=== PATIENT | female | born 1985 | race Caucasian/White ===

== ENCOUNTER 2016-03-25 23:55 | Emergency (ER) | payer OTHER ==
[~2016-03-25] VITALS: Ht 162.6 cm; Wt 77.5 kg
[~2016-03-25 23:55] MED LIST: BUPR75TA3 PO; BUTA1CAP PO
[2016-03-26] VITALS: TEMP 36.8; Ht 162.6 cm; Wt 77.5 kg
[2016-03-26] MEDS ORDERED: LIDOCAINE HCL 2% VISC SOLN 20 ML UDC ONE (00:05)
--- NOTE | 2016-03-26 00:11 | EMERGENCY ROOM VISIT NOTE ---
History Report prepared by Larry: Hardik Marie Under the Supervision of: Dr. Colton Cormier M.D. 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 The patient was working on her ultrasound machine in the ED. She was using the cleaning product when she noticed it was leaking onto her hands. The solution was 35% hydrogen peroxide. She immediately washed it off with warm, soapy water and copious irrigation. She has painful hartley to her bilateral palms and fingers. 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 She denies any other injuries. She also denies any previous hand injuries. She denies any past medical problems. She had a ring on her hand , which we removed. She also notes that her hands have begun to swell. Source of History: patient Onset: STAFFING ADMINISTRATOR Position: other (bilateral hands) Symptom Intensity: mild Quality: burning Timing: constant Note: She is experiencing bilateral hand edema and hartley. Review of Systems See HPI for pertinent positives & negatives. A total of 10 systems reviewed and were otherwise negative. Past Medical & Surgical Medical Problems: (1) No Known Active Medical Problems Family History Patient reports no known family medical history. Social History Smoking Status: Never Smoker Smokeless Tobacco Use: No Alcohol Use: none Drug Use: none Occupation Status: employed Current/Historical Medications Scheduled Aspirin (Aspirin Ec), 81 MG PO DAILY Citalopram (Citalopram Hydrobromide), 1 TAB PO DAILY Scheduled PRN Oxycodone Immediate Rel Tab (Roxicodone Ir), 1-2 TAB PO Q4H PRN for Severe Pain Allergies Coded Allergies: Sulfa Drugs (Verified Allergy, Unknown, NAUSEA, 03/26/16) Physical Exam Vital Signs Date Time Temp Pulse Resp B/P Pulse Ox O2 Delivery O2 Flow Rate FiO2 03/26/16 01:28 74 18 121/72 94 03/26/16 00:00 36.8 92 16 130/88 96 Room Air Physical Exam GENERAL: Patient is well appearing and in mild acute distress. HEENT: No acute trauma, normocephalic atraumatic, mucous membranes moist, no nasal congestion, no scleral icterus. NECK: No stridor, no adenopathy, no meningismus, trachea is midline. LUNGS: No dyspnea. Clear to auscultation and equal bilaterally. No wheeze, no rhonchi. HEART: Regular rate and rhythm. No murmurs, rubs, gallops appreciated. EXTREMITIES: Mild edema to bilateral hands and fingers. White skin over the palmar aspect of both hands. Sensation intact. Distal NV, no other injuries. NEUROLOGIC: Alert and oriented, no acute motor or sensory deficits, no focal weakness, cranial nerves grossly intact. SKIN: No rash, no jaundice, no diaphoresis. Medical Decision & Procedures Medications Administered Medications (Trade) Dose Ordered Sig/Sina Route Start Time Stop Time Status Last Admin Dose Admin Lidocaine HCl (Viscous Lidocaine 2% Soln) 20 ml STK-MED ONCE .ROUTE 03/26/16 00:05 03/26/16 00:06 DC 03/26/16 00:05 20 ML Oxycodone HCl (Roxicodone Immediate Rel Tab) 10 mg NOW STAT PO 03/26/16 00:38 03/26/16 00:39 DC 03/26/16 00:49 10 MG Ondansetron HCl (Zofran Odt) 4 mg ONE ONCE PO 03/26/16 00:45 03/26/16 00:46 DC 03/26/16 00:49 4 MG ED Course 0002: The patient was evaluated in room A2. A complete history and physical exam was performed. 0005: Lidocaine HCl 20 ml .ROUTE 0024: At this time, I spoke with Dr. Smith of the [facility]. He agrees with the current treatment plan. There is no need for a follow up unless severe blistering occurs. 0036: Lidocaine was applied to the patient's hands. She notes mild improvement. She does not think that she can drive herself home in her condition. She will call her . 0038: Oxycodone HCl 10 mg PO 0045: Zofran Odt 4 mg PO, Oxycodone HCl 1 homepack PO 0119: The patient is feeling much better. 0125: Reevaluated the patient. Discussed results and discharge instructions: She verbalized understanding and agreement. The patient is ready for discharge. Medical Decision 30 yr old female arrives for evaluation of bilateral hand chemical hartley to palms. No n/v compromise though already having some swelling. Rings removed. She is uncomfortable though given Oxy IR with vast improvement in pain. Did discuss with [facility] who agree with monitoring at home. Stable and in no distress. Will go home with . 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 Stable otherwise. No other symptoms and feeling well. Discussed Oxy IR restrictions. Consults Time Called: 002 Consulting Physician: Dr. Smith - [facility] Returned Call: 0024 He agrees with the current treatment plan. There is no need for a follow up unless severe blistering occurs. Impression Primary Impression: Chemical burn of hand Scribe Attestation The scribe's documentation has been prepared under my direction and personally reviewed by me in its entirety. I confirm that the note above accurately reflects all work, treatment, procedures, and medical decision making performed by me. Departure Information Dispostion Home / Self-Care Prescriptions Oxycodone Immediate Rel Tab (ROXICODONE IR) 5 Mg Tab 1-2 TAB PO Q4H Y for Severe Pain, #20 TAB Prov: Colton Cormier M.D. 03/26/16 Referrals Employee Health Forms HOME CARE DOCUMENTATION FORM, IMPORTANT VISIT INFORMATION Patient Instructions ED Burn Chemical, [facility] Additional Instructions You have received a narcotic pain medication prescription. These medications may cause drowsiness and should not be used with other sedative medications. Do not drive, drink alcohol, perform dangerous activities, nor make important decisions after taking these medications. shelter use or inappropriate use may lead to addiction. Problem Qualifiers Primary Impression: Chemical burn of hand Encounter type: initial encounter Laterality: unspecified laterality Qualified Codes: T23.409A - Corrosion of unspecified degree of unspecified hand , unspecified site, initial encounter
[2016-03-26] MEDS ORDERED: OXYCODONE HCL IR 5 MG TAB (IMMEDIATE RELEASE) PO STA (00:38)
[2016-03-26] MEDS ORDERED: ONDANSETRON 4MG OD TAB PO ONE (00:45)
[2016-03-26] MEDS ORDERED: OXYCODONE IR HOME PACK PO ONE (00:45)
[2016-03-26] MEDS ORDERED: OXYC1TAB3 PO (01:20)
[2016-03-26] MEDS ORDERED: ASPI81TA28 PO (01:25)
[2016-03-26] MEDS ORDERED: CITA40TA4 PO (01:25)
[2016-03-26 01:28] VITALS: BP 121/72; PULSE 74; O2SAT 94
== END 2016-03-26 01:28 | disposition home or self-care (01) ==
LOC: C.EDA 23:58
DX: Z77.098 Contact with and (suspected) exposure to other hazardous, chiefly nonmedicinal, chemicals (principal); T23.452A Corrosion of unspecified degree of left palm, initial encounter; T23.451A Corrosion of unspecified degree of right palm, initial encounter; Y99.0 Civilian activity done for income or pay

== ENCOUNTER → 2017-01-21 | Outpatient (CLI) | payer OTHER ==
[~2017-01-21] MED LIST changes: +ASPI81TA28 PO; -BUPR75TA3 PO; -BUTA1CAP PO; +CITA40TA4 PO
== END | disposition home or self-care (01) ==
LOC: C.LAB 16:46
DX: Z32.00 Encounter for pregnancy test, result unknown (principal)